=== PATIENT | male | born 1980 | race Caucasian/White ===

== ENCOUNTER → 2018-05-27 | Emergency (ER) | payer OTHER ==
[~2018-05-27] VITALS: Ht 170.2 cm; Wt 81.6 kg
== END | disposition left against medical advice (07) ==
LOC: ER 13:45
DX: S00.83XA Contusion of other part of head, initial encounter (principal); S60.212A Contusion of left wrist, initial encounter; V49.9XXA Car occupant (driver) (passenger) injured in unspecified traffic accident, initial encounter; Y93.89 Activity, other specified; Y92.488 Other paved roadways as the place of occurrence of the external cause; Y99.8 Other external cause status